=== PATIENT | female | born 1980 | race Caucasian/White ===

== ENCOUNTER 2021-06-01 07:46 | Outpatient (CLI) | payer OTHER, SELFPAY ==
--- NOTE | ~2021-06-01 | MM_ITS ---
EXAMINATION: MM scrn julianna implant BI w michael HISTORY: Screening mammogram TECHNIQUE: Craniocaudal and mediolateral oblique 3-D tomosynthesis images with implant displacement a nd synthetic 2-D images were generated. Craniocaudal and mediolateral oblique views of the breasts wi thout implant displacement were obtained using full field digital mammography. CAD analysis was submi tted and interpreted. COMPARISON: 03/13/2016 BREAST PARENCHYMAL COMPOSITION: The breasts are heterogeneously dense, which may obscure small masses . FINDINGS: There is no evidence of suspicious mass, calcification, or architectural distortion to sugg est malignancy in either breast. There has been no suspicious interval change. IMPRESSION: 1. No mammographic evidence of malignancy. 2. Recommend routine screening mammography in one year. BI-RADS Category 1: Negative Reviewed, dictated and finalized at location A.
== END 2021-06-01 07:47 | disposition home or self-care (01) ==
LOC: ANHIMG 07:48
PROVIDERS: PCP Nurse Practitioner Family; Visit Provider Nurse Practitioner Family
DX: Z12.31 Encounter for screening mammogram for malignant neoplasm of breast (principal)
CPT/HCPCS: 77063; 77067

== ENCOUNTER 2022-01-12 10:21 | Outpatient (CLI) | payer OTHER, SELFPAY ==
--- NOTE | ~2022-01-12 | XR_ITS ---
XR hip RT min 2V DATE: 01/12/2022 10:56 INDICATION: Right hip pain TECHNIQUE: AP and lateral views of right hip COMPARISON: None FINDINGS: No fracture, dislocation, avascular necrosis or bone destruction of the right hip. Right hi p joint space is well preserved. The pubic symphysis and right sacroiliac joint are intact. IMPRESSION: Negative right hip Reviewed, dictated and finalized at location B. 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
--- NOTE | ~2022-01-12 | XR_ITS ---
XR lumbar spine min 4V DATE: 01/12/2022 10:56 INDICATION: Spondylolisthesis TECHNIQUE: Standing AP and lateral and coned lateral lumbosacral views. Standing flexion and extensio n lateral views COMPARISON: None FINDINGS: There is mild thoracolumbar dextroscoliosis. There is grade 1 anterolisthesis at L4-5 and L5-S1 which appears relatively stable in flexion, extens ion and neutral positions. No fracture or bone destruction is evident. Lumbar pedicles are intact. Lumbar levels interspaces jeanne ear relatively preserved. The sacroiliac joints appear normal. IMPRESSION: Grade 1 anterolisthesis at L4-5 and L5-S1 Reviewed, dictated and finalized at location B. OLLER
== END 2022-01-12 10:22 | disposition home or self-care (01) ==
PROVIDERS: PCP Nurse Practitioner Family; Visit Provider Anesthesiology
DX: M43.16 Spondylolisthesis, lumbar region (principal)
CPT/HCPCS: 72110; 73502

== ENCOUNTER 2023-01-03 14:35 | Outpatient (CLI) | payer OTHER, SELFPAY ==
--- NOTE | ~2023-01-03 | MM_ITS ---
EXAMINATION: MM scrn julianna implant BI w michael HISTORY: Screening mammogram TECHNIQUE: Craniocaudal and mediolateral oblique 3-D tomosynthesis images with implant displacement a nd synthetic 2-D images were generated. Craniocaudal and mediolateral oblique views of the breasts wi thout implant displacement were obtained using full field digital mammography. CAD analysis was submi tted and interpreted. COMPARISON: Comparison to multiple prior studies sequentially, with oldest reviewed study dated 03/13. BREAST PARENCHYMAL COMPOSITION: There are scattered areas of fibroglandular density. FINDINGS: There is no evidence of suspicious mass, calcification, or architectural distortion to sugg est malignancy in either breast. There has been no suspicious interval change. IMPRESSION: 1. No mammographic evidence of malignancy. 2. Recommend routine screening mammography in one year. BI-RADS Category 1: Negative Reviewed, dictated and finalized at location A. 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
== END 2023-01-03 14:36 | disposition home or self-care (01) ==
LOC: ANHIMG 14:37
PROVIDERS: PCP Nurse Practitioner Family; Visit Provider Obstetrics & Gynecology
DX: Z12.31 Encounter for screening mammogram for malignant neoplasm of breast (principal)
CPT/HCPCS: 77063; 77067